=== PATIENT | female | born 1980 | race Caucasian/White ===

== ENCOUNTER 2020-12-25 12:35 | Outpatient (CLI) | payer BC, SELFPAY ==
--- NOTE | 2020-12-25 12:49 | MM_ITS ---
WS: [id number] BILATERAL DIGITAL DIAGNOSTIC MAMMOGRAM MAMMOGRAPHY WITH CAD CLINICAL INFORMATION: RT BREAST MASS COMPARISON: TECHNIQUE: Bilateral CC, MLO, and ML views. FINDINGS: Scattered fibroglandular densities bilaterally. Palpable marker inferior medial right breast. No defi nite parenchymal abnormalities in the area of palpable concern. Mild associated skin thickening. Righ t breast is otherwise unchanged in appearance. Stable ovoid nodular densities left breast felt to represent fibroadenomas the prior ultrasound in . Left breast is otherwise unchanged. ULTRASOUND BREAST RIGHT TECHNIQUE: Ultrasound right breast focused area of concern. CLINICAL INFORMATION: RT BREAST MASS FINDINGS: Ultrasound right breast in the area of palpable concern. There is a superficial palpable nodule in th is area with history of discharge. In the subcutaneous soft tissues, at the 5:00 position there is a 1.3 x 0.4 x 1.3 cm small subcutaneous isoechoic lesion with central fluid. Findings most likely repre sent sebaceous cyst with small tract leading to the skin and surrounding parenchymal fibrosis. Recomm end 6 month follow-up right diagnostic mammography and ultrasound to confirm resolution. MM/[place] [id number] IMPRESSION: BI-RADS: 3-Probably Benign FOLLOW UP: 6 Month Follow-up Recommend 6 month follow-up right diagnostic mammography and ultrasound to conf irm resolution.
== END 2020-12-25 12:36 | disposition home or self-care (01) ==
LOC: RADSHAW 12:37
PROVIDERS: PCP Family Medicine; Visit Provider Nurse Practitioner Family
DX: N63.10 Unspecified lump in the right breast, unspecified quadrant (principal)
CPT/HCPCS: 76642; 77066

== ENCOUNTER → 2021-02-02 13:51 | Outpatient (BNVA) | payer BC, SELFPAY | PROVIDERS: PCP Family Medicine; Visit Provider Registered Nurse Neonatal Intensive Care | DX: N39.0 Urinary tract infection, site not specified (principal); N20.0 Calculus of kidney | CPT/HCPCS: 81000 ==

== ENCOUNTER → 2021-02-12 09:00 | Outpatient (BNVA) | payer BC, SELFPAY | PROVIDERS: PCP Family Medicine; Visit Provider Nurse Practitioner Women's Health | DX: N87.0 Mild cervical dysplasia (principal) | CPT/HCPCS: 87624 ==

== ENCOUNTER → 2021-02-21 12:29 | Outpatient (BNVA) | payer BC, SELFPAY | PROVIDERS: PCP Family Medicine; Visit Provider Nurse Practitioner | DX: R39.9 Unspecified symptoms and signs involving the genitourinary system (principal); R31.9 Hematuria, unspecified | CPT/HCPCS: 81000; 87077; 87086; 87184 ==

== ENCOUNTER → 2021-06-16 15:44 | Outpatient (BNVA) | payer OTHER, SELFPAY | PROVIDERS: PCP Family Medicine; Visit Provider Obstetrics & Gynecology | DX: R87.610 Atypical squamous cells of undetermined significance on cytologic smear of cervix (ASC-US) (principal); Z87.42 Personal history of other diseases of the female genital tract | CPT/HCPCS: 81025; 88305 ==

== ENCOUNTER 2022-04-16 13:50 | Outpatient (CLI) | payer OTHER, SELFPAY ==
--- NOTE | 2022-04-16 14:12 | MR_ITS ---
WS: [id number] MRI LUMBAR SPINE NONCONTRAST HISTORY: LOW BACK PAIN COMPARISON: None available. TECHNIQUE: Sagittal and axial multisequence imaging is submitted. Mild straightening of the normal lumbar lordosis. No acute fractures or marrow edema. Moderate disc space narrowing at L4-5. Conus terminates normally at L1. L1-L2: Normal. L2-L3: Normal. L3-L4: Normal. L4-L5: Mild annular disc bulge. Large central to LEFT paracentral and subarticular recess disc protru gómez. There is significant displacement of the LEFT lateral thecal sac and the traversing LEFT L5 ner ve root. Disc extends over a length of 13 mm. Mild LEFT foraminal narrowing. Minimal RIGHT subarticul ar recess encroachment. L5-S1: Mild annular disc bulging. MR/MR lumbar spine wo con* [id number] IMPRESSION: 1. Large central, paracentral and subarticular disc protrusion at L4-5. There is significant displacement of the nerve roots in the LEFT thecal sac. Signific ant encroachment upon the traversing LEFT L5 nerve root. Mild LEFT foraminal na rrowing. 2. Moderate disc space narrowing at L4-5. Minimal RIGHT subarticular recess en croachment at L4-5.
== END 2022-04-16 13:51 | disposition home or self-care (01) ==
PROVIDERS: PCP Family Medicine; Visit Provider Nurse Practitioner Family
DX: M51.26 Other intervertebral disc displacement, lumbar region (principal); M48.061 Spinal stenosis, lumbar region without neurogenic claudication
CPT/HCPCS: 72148

== ENCOUNTER 2024-01-12 14:52 | Outpatient (CLI) | payer OTHER, SELFPAY ==
--- NOTE | 2024-01-12 14:57 | MM_ITS ---
WS: [id number] BILATERAL 3D TOMOSYNTHESIS DIGITAL SCREENING MAMMOGRAPHY WITH CAD CLINICAL INFORMATION: SCREENING HISTORY: Screening mammogram. No current complaints. COMPARISON: 2020 TECHNIQUE: Bilateral CC and MLO views. FINDINGS: Scattered fibroglandular densities bilaterally. No suspicious focal mass, asymmetry, calcifications, or architectural distortion. No evidence of malignancy. Stable nodular densities bilaterally. A few p unctate calcifications LEFT breast. Stable ovoid nodular densities LEFT breast previously demonstrated to likely represent fibroadenomas by ultrasound 2016. MM/MM [facility] tomosynthesis [id number] IMPRESSION: DENSITY: There are scattered areas of fibroglandular density. BI-RADS: 2 - Benign. FOLLOW UP: 1 Year Follow-up Recommend return to annual screening mammography.
== END 2024-01-12 14:53 | disposition home or self-care (01) ==
LOC: RAD 14:52
PROVIDERS: PCP Family Medicine; Visit Provider Family Medicine
DX: Z12.31 Encounter for screening mammogram for malignant neoplasm of breast (principal); N87.0 Mild cervical dysplasia; Z01.419 Encounter for gynecological examination (general) (routine) without abnormal findings; R92.323 Mammographic fibroglandular density, bilateral breasts; R92.1 Mammographic calcification found on diagnostic imaging of breast
CPT/HCPCS: 77063; 77067; 87624

== ENCOUNTER → 2024-02-17 13:06 | Outpatient (BNVA) | payer OTHER, SELFPAY | PROVIDERS: PCP Family Medicine; Visit Provider Obstetrics & Gynecology | DX: R87.629 Unspecified abnormal cytological findings in specimens from vagina (principal); N87.0 Mild cervical dysplasia | CPT/HCPCS: 81025; 88305 ==

== ENCOUNTER → 2024-02-20 14:29 | Outpatient (BNVA) | payer OTHER, SELFPAY | PROVIDERS: PCP Family Medicine | DX: R39.9 Unspecified symptoms and signs involving the genitourinary system (principal) | CPT/HCPCS: 81000; 87086 ==

== ENCOUNTER → 2024-09-25 09:56 | Outpatient (BNVA) | payer OTHER, SELFPAY | PROVIDERS: PCP Family Medicine; Visit Provider Registered Nurse Neonatal Intensive Care | DX: R39.9 Unspecified symptoms and signs involving the genitourinary system (principal) | CPT/HCPCS: 81000; 87086 ==

== ENCOUNTER → 2024-12-25 13:06 | Outpatient (BNVA) | payer OTHER, SELFPAY | PROVIDERS: PCP Family Medicine; Visit Provider Nurse Practitioner | DX: R39.89 Other symptoms and signs involving the genitourinary system (principal) | CPT/HCPCS: 81000 ==

== ENCOUNTER → 2025-01-17 16:53 | Outpatient (BNVA) | payer OTHER, SELFPAY | PROVIDERS: PCP Family Medicine; Visit Provider Emergency Medicine | DX: R39.89 Other symptoms and signs involving the genitourinary system (principal) | CPT/HCPCS: 81000; 87086 ==